=== PATIENT | female | born 1990 | race American Indian/Alaskan Native ===

== ENCOUNTER 2020-07-19 15:58 | Emergency (ER) | payer MEDICAID ==
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
== END 2020-07-19 18:01 | disposition home or self-care (01) ==
LOC: JP.ED 15:58
DX: S00.12XA Contusion of left eyelid and periocular area, initial encounter (principal); F41.9 Anxiety disorder, unspecified; E66.9 Obesity, unspecified; Z68.41 Body mass index [BMI] 40.0-44.9, adult; Z79.899 Other long term (current) drug therapy; Y04.0XXA Assault by unarmed brawl or fight, initial encounter; Y92.009 Unspecified place in unspecified non-institutional (private) residence as the place of occurrence of the external cause
CPT/HCPCS: 70486; 99284-25